=== PATIENT | female | born 1965 | race Caucasian/White ===

== ENCOUNTER 2024-11-25 13:08 | Outpatient (AMB) | payer OTHER, SELFPAY ==
[2024-11-25 13:19] VITALS: BP 160/80; PULSE 89; O2SAT 97; BMI 29.5
--- NOTE | 2024-11-25 13:19 | A.OFFVIS_ITS ---
Vital Signs 11/25/24 13:19 Height 5 ft 4.5 in Weight 174 lb 9.698 oz BMI 29.5 BP 160/80 H Blood Pressure Location Lt brachial Position Sitting Pulse 89 Pulse Source Pulse Oximeter Pulse Oximetry (%) 97 Oxygen Delivery Method Room Air Intake Visit Reasons: arthralgia Intake Note: Patient presents today for osteoarthritis. Accompanied by: Self / Same As Patient Allergies ciprofloxacin [From Cipro] Allergy (Intermediate, Verified 11/25/24 13:20) Rash amoxicillin Allergy (Mild, Verified 11/25/24 13:20) Rash bacitracin Allergy (Mild, Verified 11/25/24 13:20) Rash budesonide Allergy (Mild, Verified 11/25/24 13:20) Rash neomycin Allergy (Mild, Verified 11/25/24 13:20) Rash erythromycin base [From Erythrocin] Allergy (Verified 11/25/24 13:20) vomitting clavulanate Allergy (Mild, Uncoded 11/21/24 14:39) Rash dexmethasone Allergy (Mild, Uncoded 11/21/24 14:39) Anxiety HPI HPI arthralgia: Details: She tried 3 different OTs without luck in getting custom CMC splints. Hard to open jars including medicine bottles. She has weakness in her hands. She has been worked up for chronic lower back pain and has been experiencing weakness in her legs. She has been referred to physical therapy. [facility] Medical History Vertigo Tinea corporis Nodular corneal degeneration, right eye Hyperglycemia Vitamin B 12 deficiency Dorita's disease Hypothyroidism Polycystic disease, ovaries Raynauds syndrome Osteoporosis Localized primary osteoarthritis of carpometacarpal (CMC) joint Primary biliary cirrhosis Trochanteric bursitis, right hip Infrapatellar bursitis Backache Arthralgia of knee Arthralgia of left ankle or foot Positive HOWARD (antinuclear antibody) Family History Father Heart disease Stroke Review of Systems Const All systems reviewed & are unremarkable except as noted in HPI and below Physical Exam Vital Signs: Last Vital Signs Pulse 89 11/25/24 13:19 BP 160/80 H 11/25/24 13:19 Pulse Ox 97 11/25/24 13:19 Oxygen Delivery Method Room Air 11/25/24 13:19 BMI result Body Mass Index 29.5 Const Other: General: Comfortable Skin: No lesions seen MSK: Tender to palpate bilateral CMCs with mild squaring left worse than right. 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 Assessment & Plan Assessment & Plan (1) Osteoarthritis of carpometacarpal (CMC) joint of both thumbs: Comment: Mild, right clinical diagnosis, left confirmed radiographically 02/2024. We discussed conservative management. Code(s): M18.0 - Bilateral primary osteoarthritis of first carpometacarpal joints Category: Medical Plan: She agreed to OT at [facility] with custom splints Return to clinic in 3 months Coding Level of Care Code Est Pt Level 3 (48133) Complex EM visit Add On G2211 Diagnoses Osteoarthritis of carpometacarpal (CMC) joint of both thumbs M18.0
--- OUTSIDE RECORDS SUMMARY | 2024-11-25 16:00 | XMS_ITS | Data Portability ---
Author Organization [place] - [facility], [facility] Design Agent Address [address] [place] [address] Care Team Providers Care Inserting Press Operator Name Role Phone RICHA SOLIS Primary Care Provider [phone] Assessment Encounter Date Assessment Date Assessment LastModified by Organization Details LastModified Time 03/16/2022 03/16/2022 56 hx of PCOS and facial hair was on estrostep , discontinued few months ago was seen by OBGYN 12 months ago and by [facility] at [facility] multiple allergies to meds and dye last period in Jul 2021 with some menopausal sx last FSH 45 patient reassured as PCOS symptoms will improve spontaneously in post menopause discussed possible non hormonal treatment for her menopausal sx including SSRI , Gabapentin and supplements and life style modifications discussed spironolactone as androgen antagonist to help with hirsutism if ok by PCP will repeat FSH as patient is not convinced she is menopausal yet she will call after blood work and after talking to her pcp to discuss results and treatment if desires over 45 min spent today reviewing record , interviewing, examining, discussing findings , recommendations and plan of care [email or web address] Not available 03/16/2022 13:05:10 Plan of Treatment Reminders Order Date Submit Date Provider Last Modified By Organization Details Last Modified Time Details Appointments None recorded . Lab pap, IG + HPV mRNA E6/E7 + reflex HPV (16+18+4 5) 024 024 [facility], [address] [place] [address], [id number], 4 16:16:09 FSH (follicl e-stimul ating hormone) , serum 022 022 [facility], [address] [place] [address], [id number], 3 10:11:10 Referral None recorded . Procedures None recorded . Surgeries None recorded . Imaging None recorded . Medication Orders None recorded . Patient TargetsNo targets recorded. Patient Instructions Encounter Date Encounter Id Patient Instructions Last Modified By Organization Details Last Modified Time 05/07/2024 [id number] A healthy lifestyle: care instructions Not available 05/07/2024 13:48:53 eating healthy foods: care instructions Not available 05/07/2024 13:48:53 bone building exercises Not available 05/07/2024 13:48:53 Reminders about healthy habits and basic lifestyle recommendations: 1) Calcium/Vitamin D: dietary calcium is preferred over supplements--juan daniel e take some time to look into the amount of calcium you normally get through food intake on a typical day--if this is above 7972-5696 mg daily then there is no need for a calcium supplement; if you want to consider taking a vitamin D supplement, the best approach would be to take 600-800 units of vitamin D3 daily, although this may not even be needed for people with a healthy diet, sun exposure, and no health conditions that specifically relate to vitamin D deficiency. Here is a link to a way to calculate your vitamin D needs: https://www.dietar yguidelines.gov/re sources/- dietary-guidelines -online-materials/ vljl-ctbioop-ztkrr t-nutrients/food-s ources 2) Physical activity and exercise: physical activity and exercise are two very important factors in good health. Any physical activity is valuable--walking, taking the stairs, housework or gardening...try to remain as physically active as possible throughout the day. In addition, there are MAJOR health benefits to incorporating exercise into your daily life--ideally 20-30 minutes each day of dedicated exercise time. Good examples of exercise include walking, swimming, jogging/running, biking, exercise machines (ellipticals, treadmills, rowing machines, stairclimbers), yoga, pilates, aerobics...any exercise at all is good for your health. It is also very important for women to incorporate resistance training/weightlif ting into their daily routines as much as possible to help maintain muscle mass, strength, balance, metabolism, and to combat the effects of loss of muscle and bone density that can naturally occur with aging. Consider meeting with a applications trainer or discussing with friends who incorporate resistance training to discover ways to begin to incorporate weightlifting/resi stance training into your daily routine. 3) Healthy diet--YOU ARE WHAT YOU EAT: healthy foods are perhaps the biggest contributor to good health, well-being, and feeling good in your body. Eat mostly plants, minimally processed foods, and healthy, lean proteins as well as healthy fats (olive oil, avocados). Try to reduce the amount of added sugar and added salt in your diet. Avoid fast foods and processed/packaged foods when possible. Drink plenty of water; avoid sugary drinks, diet sodas, and excessive alcohol (no more than one serving of alcohol daily). These are all important steps to take for health and longevity. [email or web address] Not available 05/06/2024 08:00:55 Reason for Referral None Reported. Results Created Date Observation Date Name Description Value Unit Range Abnormal Flag Note LastModifiedBy Organization Detail LastModifiedTime 05/07/20 24 05/10/2024 THINP REP TIS PAP AND HPV MRNA E6/E7 WITH REFLE X TO HPV 16,18 /45 clinical information: normal None given Not Available [facility] [address], [address], 05/10/2024 16:16:09 05/07/20 24 05/10/2024 THINP REP TIS PAP AND HPV MRNA E6/E7 WITH REFLE X TO HPV 16,18 /45 LMP: normal NONE GIVEN Not Available [facility] [address], [address], 05/10/2024 16:16:09 05/07/20 24 05/10/2024 THINP REP TIS PAP AND HPV MRNA E6/E7 WITH REFLE X TO HPV 16,18 /45 prev. Pap: normal NONE GIVEN Not Available [facility] [address], [address], 05/10/2024 16:16:09 09/18/20 24 05/10/2024 THINP REP TIS PAP AND HPV MRNA E6/E7 WITH REFLE X TO HPV 16,18 /45 prev. BX: normal NONE GIVEN Not Available [facility] [place] [facility] [address], [address], 05/10/2024 16:16:09 05/07/20 24 05/10/2024 THINP REP TIS PAP AND HPV MRNA E6/E7 WITH REFLE X TO HPV 16,18 /45 source: normal Cervi x Not Available [facility] [place] [facility] [address], [place], [address], 05/10/2024 16:16:09 05/07/20 24 05/10/2024 THINP REP TIS PAP AND HPV MRNA E6/E7 WITH REFLE X TO HPV 16,18 /45 statement of adequacy: normal Satis facto ry for evalu ation . Endoc ervic al/tr ansfo rmati on zone compo nent prese nt. Not Available [facility] [place] [facility] [address], [place], [address], 05/10/2024 16:16:09 05/07/20 24 05/10/2024 THINP REP TIS PAP AND HPV MRNA E6/E7 WITH REFLE X TO HPV 16,18 /45 interpretati on/result: normal Cytol ogy Resul ts: Negat naif for intra epith elial lesio n or malig remington . Not Available [facility] [place] [facility] [address], [place], [address], 05/10/2024 16:16:09 05/07/20 24 05/10/2024 THINP REP TIS PAP AND HPV MRNA E6/E7 WITH REFLE X TO HPV 16,18 /45 comment: normal This Pap test has been evalu ated with compu ter michael xander techn ology . Not Available [facility] [place] [facility] [address], [place], [address], 05/10/2024 16:16:09 05/07/20 24 05/10/2024 THINP REP TIS PAP AND HPV MRNA E6/E7 WITH REFLE X TO HPV 16,18 /45 cytotechnolo gist: normal CMG, CT( CP) CT scree kevin locat ion: [facility] [address], [place] [address] Not Available [facility] [address], [address], 05/10/2024 16:16:09 05/07/20 24 05/10/2024 THINP REP TIS PAP AND HPV MRNA E6/E7 WITH REFLE X TO HPV 16,18 /45 comment EXPLA NATOR Y NOTE: The Pap is a scree kevin test for cervi nereyda cance r. It is not a diagn ostic test and is subje ct to false negat naif and false posit naif resul ts. It is most relia ble when a satis facto ry sampl e, regul cristian obtai elva, is submi tted with relev ant clini nereyda findi ngs and histo ry, and when the Pap resul t is evalu ated along with histo fer and curre nt clini nereyda infor matio n. Not Available [facility] [address], [place], [address], 05/10/2024 16:16:09 05/07/20 24 05/10/2024 THINP REP TIS PAP AND HPV MRNA E6/E7 WITH REFLE X TO HPV 16,18 /45 HPV MRNA E6/E7 NOT DETECT ED not detect ed normal Metho dolog y: Trans cript ion-M ediat ed Ampli ficat ion This assay detec ts E6/E7 viral messe nger RNA (mRNA ) from 14 high- risk HPV types (16,1 8,31, 33,35 ,39,4 5,51, 52,56 ,58,5 9,66, 68). Cervi nereyda sourc es are requi red for HPV testi ng. If a vagin al sourc e from a patie nt who has had a total hyste recto my with remov al of cervi x was submi tted, pleas e conta ct the testi ng labor atory for alter nativ e testi ng optio ns. For addit ional infor juan daniel ortega e refer to http: //[facility] [employer] cooper.que stdia gnost ics.c om/fa q/FAQ 129v1 (This link if provi ded for infor maximo cooper/ educa sherry l purpo ses only. ) Not Available [facility] [place] [facility] [address], [place], [address], 05/10/2024 16:16:09 05/06/20 24 11/21/2023 MAMMO , scree kevin, bilat eral No observ ation record ed. [email or web address] Not Available 2023 08:39:47 05/06/20 24 03/01/2022 colon oscop y scree kevin (PROC ) No observ ation record ed. [email or web address] Not Available 2023 08:41:03 05/06/20 24 02/13/2023 bone densi ty No observ ation record ed. [email or web address] Not Available 2023 08:42:45 Result Notes None recorded. Problems Name Problem SNOMED Code Status Onset Date Resolution Date Notes Provider Name and Address Organization Details Recorded Time Polycystic ovary syndrome 371258179 Active 2021 Cordelia Chavira PASTRY DECORATOR null, [place] - [facility] 2 09:46:46 Primary biliary cholangitis 17444464 Active 2021 Cordelia Chavira PASTRY DECORATOR null, [facility] 2 09:47:18 Hyperlipide duane 90993700 Active 2021 Cordelia Chavira PASTRY DECORATOR null, [facility] 2 09:47:51 Hypothyroid ism 98773518 Active 2021 Cordelia Chavira PASTRY DECORATOR null, [facility] 2 09:52:19 Corneal degeneratio n 637410019 Active 2021 Right Eye Vipul Mcdaniel MD [address] [place], [address], [facility] 4 13:37:17 Female stress incontinenc e 82973410 Active 2021 Urine Vipul Mcdaniel MD [address] [place] [address], [phone], [facility] 4 13:37:17 Hyperglycem ia 85540942 Active 2021 Tisha Ly [facility] 2 07:21:43 Overweight 852621047 Active 2021 [facility] Ly [facility] 07:21:52 Notes:Rectocele Problem Notes None recorded. Procedures Surgical History Date Name Laterality Status Provider Name and Address Organization Details Recorded Time 11/21/19 24 Date of Last Mammogram completed Hortencia Martinez [facility] 05/06/2024 08:37:13 02/14/20 23 Most Recent Bone Density completed Hortencia Martinez [facility] 05/06/2024 08:37:50 03/01/20 22 Date of Last Colonoscopy completed Hortencia Martinez [facility] 05/06/2024 08:37:30 03/01/20 22 EGD completed Tisha Ly [facility] 03/16/2022 11:31:58 03/01/20 22 Sigmoidoscopy completed Tisha Ly [facility] 03/16/2022 11:32:34 01/23/20 20 Date of Last Pap Smear completed Cordelia Chavira [facility] 03/08/2022 09:48:22 procedure on ganglion cyst completed Tisha Ly [facility] 03/16/2022 11:33:26 extraction of wisdom tooth completed Tisha Ly [facility] 03/16/2022 11:33:42 biopsy of liver completed Tisha horner [facility] 03/16/2022 11:34:17 Imaging Results Imaging Date Name Status LastModified by Organiz ation Details LastModified Time 11/21/2023 MAMMO, screening, bilateral completed Information not available 05/06/2024 08:39:47 03/01/2022 colonoscopy screening (PROC) completed Information not available 05/06/2024 08:41:03 02/13/2023 bone density completed Information not available 05/06/2024 08:42:45 Procedure Notes None recorded. Medical Equipment None Reported. Allergies Allergen ID Allergen Name Allergen Category Reaction Reaction Severity Criticality Documentation Date Start Date Code Code System Note Provider Name and Address Organization Details Recorded Time 575346 amoxicill in medicatio n other severe Not available 03/16/2022 723 RxNorm GI Upset Tisha Malachi PASTRY DECORATOR null, [facility] 2 07:25:34 166085 bacitraci n medicatio n Not available Not available Not available 03/16/2022 1291 RxNorm Tisha Malachi PASTRY DECORATOR null, [facility] 2 07:26:01 006783 budesonid e medicatio n other severe Not available 03/16/2022 20568 RxNorm Tisha Malachi PASTRY DECORATOR null, [facility] 2 07:26:45 356940 ciproflox acin medicatio n other severe Not available 03/16/2022 2551 RxNorm visua l distu rbanc e Tisha Malachi PASTRY DECORATOR null, [facility] 2 07:27:53 892904 clavulani c acid Not available other severe Not available 03/16/2022 26769 RxNorm Tisha Malachi PASTRY DECORATOR null, [facility] 2 07:28:15 407959 dexametha sone medicatio n Not available Not available Not available 03/16/2022 3264 RxNorm Tisha Malachi PASTRY DECORATOR null, [facility] 2 07:28:35 833347 erythromy rose marie medicatio n other severe Not available 03/16/2022 4053 RxNorm Tisha Malachi PASTRY DECORATOR null, [facility] 2 07:28:58 713310 fluocinol one acetonide medicatio n other severe Not available 03/16/2022 4461 RxNorm Tisha Malachi PASTRY DECORATOR null, [facility] 2 07:29:53 329247 fluocinon maxx medicatio n other severe Not available 03/16/2022 4462 RxNorm Tisha Malachi PASTRY DECORATOR null, [facility] 2 07:30:35 190852 miconazol e medicatio n other severe Not available 03/16/2022 6932 RxNorm Tisha Malachi PASTRY DECORATOR null, [facility] 2 07:31:23 675254 neomycin medicatio n Not available Not available Not available 03/16/2022 7299 RxNorm Blist ering Tisha Malachi PASTRY DECORATOR null, [facility] 2 07:31:55 956480 Product containin g penicilli n (product) medicatio n Not available Not available Not available 03/16/2022 18860 8001 SNOMED Tisha Malachi PASTRY DECORATOR null, [facility] 2 07:32:15 479889 polymyxin B medicatio n Not available Not available Not available 03/16/2022 8536 RxNorm Blist ering Tisha Malachi PASTRY DECORATOR null, [facility] 2 07:32:53 467565 prednison e medicatio n hives Not available Not available 03/16/2022 8640 RxNorm Tisha Malachi PASTRY DECORATOR null, [facility] 2 07:33:13 613567 clindamyc in Not available Not available Not available Not available 03/16/2022 2582 RxNorm Abdom inal Pain Tisha Malachi PASTRY DECORATOR null, [facility] 2 07:33:48 Medications Name Sig Start Date Stop Date Status Note LastModified by Organization Details LastModified Time diphenhydra mine 12.5 mg/5 mL oral liquid active Not Available Not Available Not Available Synthroid 150 mcg tablet active Not Available Not Available Not Available FML Liquifilm 0.1 % eye drops,suspe nsion active Not Available Not Available Not Available Estrostep 1-20 (5)/1-30(7) /1mg-35mcg( 9) tablet 03/16 completed Not Available Not Available Not Available famotidine 20 mg tablet active Not Available Not Available Not Available gentamicin 0.3 % eye drops active Not Available Not Available Not Available clotrimazol e-betametha sone 1 %-0.05 % topical cream active Not Available Not Available Not Available ursodiol 300 mg capsule Take 1 capsule 3 times a day by oral route. active Not Available Not Available No t Available nystatin 100,000 unit/gram topical powder active Not Available Not Available Not Available ibuprofen 100 mg/5 mL oral suspension active Not Available Not Available N ot Available mometasone 0.1 % topical cream APPLY TOPICALLY TO THE AFFECTED AREA TWICE DAILY active Not Available Not Available No t Available Synthroid 137 mcg tablet active Not Available Not Available Not Available estradiol micronized (bulk) 100 % powder 03/16 completed Not Available Not Available Not Available Systane Ultra 0.4 %-0.3 % eye drops active Not Available Not Available Not Available GenTeal Tears Moderate (PF) 0.1 %-0.3 % drops in a dropperette active Not Available Not Available Not Available Vitals Date Recorded Body height Heart rate Body mass index (BMI) Body weight Systolic blood pressure Diastolic blood pressure Provider Name and Address Organization Details Last Updated DateTime 2 162.56 cm 80 /min 28.5 kg/m2 88513.3 3 g 132 mm[Hg] 84 mm[Hg] Tisha Ly CMA [facility] [employer] 2 11:42:47 Date Recorded Body height Body mass index (BMI) Body weight Systolic blood pressure Diastolic blood pressure Provider Name and Address Organization Details Last Updated DateTime 05/07/2024 162.56 cm 28.5 kg/m2 79487.61 g 130 mm[Hg] 82 mm[Hg] Hortencia Martinez CMA [facility] 4 13:29:17 Social History Question Answer Notes LastModified by Organizat ion Details LastModified Time Tobacco Smoking Status [facility] 03/16/2022 07:22:27 What Is Your Level Of Alcohol Consumption? None Information not available 03/16/2022 Are You Currently Employed? No Information not available 03/16/2022 Have You Ever Experienced Any Trauma Such As A Sexual Assault, Domestic Violence, Combat Experience, A Sudden Of A Loved One, Or Anything That Made You Excessively Afraid? No Information not available 03/16/2022 Sexual Abuse No Information not available 03/16/2022 What Was The Date Of Your Most Recent Tobacco Screening? 05/07/2024 Information not available 05/07/2024 How Many Children Do You Have? 1 Information not available 03/16/2022 What Is Your Relationship Status? Single Information not available 03/16/2022 Are You Sexually Active? No Information not available 03/16/2022 Sex: Female Functional Status None recorded. Mental Status None recorded. Family History Relationship Description Onset Age of this Age Resolved Age Notes LastModified by Organization Details LastModified Time Paternal Grandmother Malignant tumor of colon etatro Not available 2021 11:43:18 Notes:No family hx of breast ,ovarian,endometrial, cervical, colon cancer reviewed 05/07/24 CRS Medical History No medical history recorded. Gynecological History Statement/Question Response Hx abnormal paps No Date of Last Colonoscopy 03/01/2022 incontinence urine/ bowels Y Date of Last Mammogram 11/21/2023 Most Recent Bone Density 02/13/2023 genital prolapse N Date of LMP hx of breast problem No Sexually Active? N Hx any STI No Date of Last Pap Smear 01/23/2020 Age at Menarche 14 hx of urinary problem No Obstetrics History GPAL:G 1 P 1 0 0 1 Type Value Full Term 1 Living 1 Total 1 Past Encounters Encounter ID Performer Location Encounter Start Date Encounter Closed Date Diagnosis/Indication Diagnosis SNOMED-CT Code Diagnosis ICD10 Code Diagnosis Note [id number] Jamel Alicia MD [employer] [address] [place] [address] 03/16/2022 11:22:53 03/16/2022 12:12:04 Menopausal symptom 23731999 N95.1 Polycystic ovary syndrome 140890964 E28.2 Female hirsutism 0105021 9 L68.0 [id number] Vipul Mcdaniel MD [facility] [employer] [address] [place] [address] 05/07/2024 13:10:50 05/07/2024 13:52:15 Gynecologic examination 27062417 Z01.419 up to date on routine health maintenanc e or else any needed screenings ordered today; encourage/ continue healthy living habits Discussed dietary calcium intake, vitamin D3 supplement ation, magnesium, physical activity and importance of resistance training to maintain muscle mass Screening for malignant neoplasm of cervix 153641516 Z12.4 Z01.419 Overactive urinary bladder 765766321 N32.81 Female str ess incontinence 69344720 N39.3 offered referral to PFPT--Adalid cooper will check with PT office she attends in [place] and let us know if she wants referral to be placed Health Concerns Section Related Observation LastModified by Organization Detai ls LastModified Time None Recorded Concern Status LastModified by Organization Details LastModified Time None Recorded Advance Directives Directive None Recorded Payers Encounter Date Sequence Insurance Name Policy Number Policy Sun Covered Member ID Sun Member ID Guarantor Name 03/16/2022 1 [employer] (MEDICAID HMO) Alpesh Oviedo [id number] Alpesh Oviedo 05/07/2024 1 [employer] (MEDICAID HMO) Alpesh Oviedo [id number] Alpesh Oviedo Notes Date Note Type Note Provider Name and Address Organization Details Recorded Time 03/16/2022 text/html Alpesh presents today as a New PT referred by her PCP Dr. Solis for menopausal symptoms and PCOSPap - 01/23/20 Neg/Neg HPVMammo - 09/23/21 Neg Jamel Alicia MD [address] [facility], [place], [address], [facility] - [facility] 03/16/2022 13:05:18 05/07/2024 text/html Alpesh presents f or annual WWE.59yo, , postmenopausal.HRT: noneDoes have urinary urgency/frequency as a chronic symptom; does have ALYCIA.Taking ursodiol for PBC--sees specialist.No longer taking any hormonal medication. Pap: 01/23/20 NILM/HPV-Mammo: 11/21/23Colonoscopy/ Sigmoidoscopy : 03/01/22 due for Cologard PCP orderedBone Density: 02/13/23 Vipul Mcdaniel MD [address] [place] [address], [phone], [facility] - [facility] 05/07/2024 13:48:57 OBGyn Episode No OBEpisode recorded.
== END 2024-11-25 14:19 | disposition home or self-care (01) ==
PROVIDERS: PCP Internal Medicine; Visit Provider Internal Medicine Rheumatology
DX: M18.0 Bilateral primary osteoarthritis of first carpometacarpal joints (principal)
CPT/HCPCS: 99213; G2211

== ENCOUNTER 2025-04-29 10:25 | Outpatient (AMB) | payer OTHER, SELFPAY ==
[2025-04-29 10:31] VITALS: BP 130/70; PULSE 85; O2SAT 97; BMI 29.1
--- NOTE | 2025-04-29 10:31 | MHC.OFFVIS ---
Vital Signs 04/29/25 10:31 Height 5 ft 4.5 in Weight 172 lb 6.424 oz BMI 29.1 BP 130/70 Blood Pressure Location Lt brachial Position Sitting Pulse 85 Pulse Source Pulse Oximeter Pulse Oximetry (%) 97 Oxygen Delivery Method Room Air Intake Visit Reasons: follow up Intake Note: Patient presents today for osteoarthritis. Accompanied by: Self / Same As Patient Allergies ciprofloxacin (From Cipro) Allergy (Intermediate, Verified 11/25/24 13:20) Rash amoxicillin Allergy (Mild, Verified 11/25/24 13:20) Rash bacitracin Allergy (Mild, Verified 11/25/24 13:20) Rash budesonide Allergy (Mild, Verified 11/25/24 13:20) Rash neomycin Allergy (Mild, Verified 11/25/24 13:20) Rash erythromycin base (From Erythrocin) Allergy (Verified 11/25/24 13:20) vomitting clavulanate Allergy (Mild, Uncoded 11/21/24 14:39) Rash dexmethasone Allergy (Mild, Uncoded 11/21/24 14:39) Anxiety HPI HPI follow up: Details: She had CMC splints customized in [place], [place], which were ineffective. They are loose. She does not wear them. 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 Having a hard time with buttons. She recently did not have increased pain when she was cutting a large quantity of carrots for animal feedings. She was able to cut enough carrots for 1600 cups of feedings. She has some swelling at times. Physical therapy discharged her. They were working on her back pain. She follows up with [facility] for primary biliary cirrhosis. She is on treatment. She continues to have elevated liver enzymes. She had an ultrasound of her liver 03/10/2025, which revealed that she had hepatic steatosis. Labs from March 2025 reviewed with patient, which reveal positive Lyme IgM antibody. She had a lesion on her ankle with erythema and blistering that was treated with 7 day course of amoxicillin t.i.d.. She had resolution of lesion. She was referred to wound care today but we will not be going to appointment because the lesion is now resolved. [facility] Medical History Vertigo Tinea corporis Nodular corneal degeneration, right eye Hyperglycemia Vitamin B 12 deficiency Dorita's disease Hypothyroidism Polycystic disease, ovaries Raynauds syndrome Osteoporosis Localized primary osteoarthritis of carpometacarpal (CMC) joint Primary biliary cirrhosis Trochanteric bursitis, right hip Infrapatellar bursitis Backache Arthralgia of knee Arthralgia of left ankle or foot Positive HOWARD (antinuclear antibody) Family History Father Heart disease Stroke Physical Exam Vital Signs: Last Vital Signs Pulse 85 04/29/25 10:31 BP 130/70 04/29/25 10:31 Pulse Ox 97 04/29/25 10:31 Oxygen Delivery Method Room Air 04/29/25 10:31 BMI result Body Mass Index 29.1 Const Other: General: Comfortable Skin: No lesions seen MSK: Tender to palpate bilateral CMCs with mild squaring left worse than right. She has mild joint effusion of left CMC. 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 Results Reviewed Results Reviewed: Labs from 04/07/2025 reviewed. Ultrasound abdomen with liver elastography from 03/10/2025 reviewed. Assessment & Plan Assessment & Plan (1) Osteoarthritis of carpometacarpal (CMC) joint of both thumbs: Comment: Mild, right clinical diagnosis, left confirmed radiographically 02/2024. CMC splints that were recently customized are ineffective for patient because they are too loose. Code(s): M18.0 - Bilateral primary osteoarthritis of first carpometacarpal joints Category: Medical Plan: She agreed to OT at [facility] to improve fine motor movement and for custom splints Return to clinic in 3 months Coding Level of Care Code Est Pt Level 4 (57530) Complex EM visit Add On G2211 Diagnoses Osteoarthritis of carpometacarpal (CMC) joint of both thumbs M18.0 Time Spent (min) 20
--- OUTSIDE RECORDS SUMMARY | 2025-04-29 12:39 | XMS_ITS | Clinical Summary ---
Author Organization [facility] Address [address] [place] [id number] Phone Care Team Providers Care Supervisor Securities Vault Name Role Phone Niko Solis MD Primary Care Provider [phone] Allergies Active Allergy Reactions Criticality Noted Date Comments Augmentin (Amoxicillin-Pot Clavulanate) GI Upset 03/22/2016 Budesonide GI Upset 03/22/2016 Ciprofloxacin Vomiting 03/22/2016 Dexamethasone GI Upset 03/22/2016 Erythromycin GI Upset 03/22/2016 Fluocinolone GI Upset 03/22/2016 Neosporin (Kyb-Kts-Kdhnp) (Hydrocortisone) Vomiting 03/22/2016 Polytrim (Polymyxin B Sulf-Trimethoprim) GI Upset 03/22/2016 Quaternium 15 Unknown 10/30/2019 Medications LEVOTHYROXINE SODIUM (SYNTHROID ORAL) Take by mouth. Activ e moxifloxacin (VIGAMOX) 0.5 % ophthalmic solution Place 1 drop into the right eye 3 (three) times a day. No substitutions 3 mL 1 6 Active Additional Information Patient not taking.Reported on 04/17/2022 gatifloxacin (ZYMAXID) 0.5 % Drop Place 1 drop into the right eye 2 (two) times a day. 2.5 mL 1 6 Active Additional Information Patient not taking.Reported on 04/17/2022 tobramycin (TOBREX) 0.3 % ophthalmic solution Place 1 drop into the right eye 2 (two) times a day. 5 mL 3 6 Active Additional Information Patient not taking.Reported on 04/17/2022 norethindrone- ethinyl estradiol-iron (ESTROSTEP FE) 1-20(5)/1-30(7 ) /1mg-35mcg (9) Tab Take 1 tablet by mouth. Active ursodioL (ACTIGALL) 300 mg capsule Take 300 mg by mouth. 0 Active Active Problems No known active problems Social History Tobacco Use Types Packs/Day Years Used Date Smoking Tobacco: Never Smokeless Tobacco: Never Education Answer Date Recorded Are you interested in more education? Not on priscilla e 12/15/2022 Are you concerned about learning? Not on file 12/15/2022 No 12/15/2022 No 12/15/2022 Digital Access Answer Date Recorded No 01/15/2023 No 01/15/2023 No 01/15/2023 Reliable internet access at home? Not on file 01/15/2023 Device with a working camera? Not on file Comments Unknown Sex and Gender Information Value Date Recorded Sex Assigned at Female 08/01/2019 9:23 AM EST Legal Sex Female 12:30 PM EDT Gender Identity Female 08/01/2019 9:23 AM EST Sexual Orientation Straight 08/01/2019 9: 23 AM EST Plan of Treatment Health Maintenance Due Date Last Done Comments LIPID PANEL 1965 TSH LEVEL 1965 DEPRESSION SCREENING 1977 HEPATITIS C SCREENING 1983 HIV ONE-TIME SCREENING (18-6 5 YEARS) 1983 PAP SMEAR 1986 MAMMOGRAM 2005 COLOGUARD 2010 COLONOSCOPY 2010 COLORECTAL CANCER SCREENING 2010 FIT TEST 2010 FOBT 2010 SIGMOIDOSCOPY 2010 VIRTUAL COLONOSCOPY 2010 PNEUMOCOCCAL VACCINES (50+ y ears) (1 of 1 - PCV) 2015 ZOSTER VACCINES (1 of 2) 2015 INFLUENZA VACCINE (#1) 2025 COVID-19 VACCINE ( - 2023-2 5 season) 2025 Adult Td,Tdap Booster 02/07/2032 02/06/2022 SMOKING STATUS SCREENING (On ce After 26 Yrs) Completed 04/17/2022 HEPATITIS A VACCINES Aged Out No long er eligible based on patient's age to complete this topic HIB VACCINES Aged Out No longer eligi ble based on patient's age to complete this topic MENINGOCOCCAL VACCINES (ACWY) Aged Out No longer eligible based on patient's age to complete this topic MENINGOCOCCAL VACCINES (B) Aged Out N o longer eligible based on patient's age to complete this topic Medical Devices Not on file [place] [address] ACO ACO ACO ACO ACO Care Teams Supervisor Securities Vault Relationship Specialty Start Date End Date Niko Solis MD [address] [facility], [facility] [address] [place] [address] PCP - General Internal Medicine 04/12/22 Additional Source Comments The information contained in this document represents components of the legal health record. It is not the complete legal health record.[facility]
== END 2025-04-29 11:40 | disposition home or self-care (01) ==
PROVIDERS: PCP Internal Medicine; Visit Provider Internal Medicine Rheumatology
DX: M18.0 Bilateral primary osteoarthritis of first carpometacarpal joints (principal)
CPT/HCPCS: 99214; G2211

== ENCOUNTER 2025-05-27 10:53 | Outpatient (RCR) | payer OTHER, SELFPAY ==
--- NOTE | 2025-05-27 12:47 | MHC.OT.EP ---
[facility] Office [address] [facility] [phone] F: [phone] F: [phone] Occupational Therapy Plan of Care Patient Name: Alpesh Oviedo Date of Evaluation: 05/27/25 Diagnosis: Bilateral OA of CMC joints Pain Location: L> R CMC joint pain radiates to forearm Current: 4/10 Worst: 8/10 Aggravating Factors: Forceful grasp, pincer grasp Difficulty lifting Alleviating Factors: None reported Previously utilized CMC splints with good effect Assessment: Alpesh is a 60 y/o female referred to OT w/ bilateral OA of CMC joints. Pt reports she is unable to come back for therapy as she lives in [place] and the drive is too much. She is open to custom CMC splinting and education of exercises for HEP. She had CMC splints customized in [place], [place], which were ineffective. They are loose and she reports she does not wear them. 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 Pt was educated in splinting wearing schedule and skin checks. Pt practiced with bilateral thumb AROM exercises and t-foam exercises for gentle strengthening, and was issued handouts for HEP. She was also educated in joint protection techniques and pain management options. At this time, due to long commute, pt was instructed to call with any questions/concerns, and is otherwise being seen for eval only with custom splinting. Frequency and Duration: The patient will be seen for OT eval only Short Term Goals: Pt will be educated in joint protection techniques Fabricate bilateral thumb spica splints for OA management IND with HEP Lead Installer Goals: STG's=LTG's Treatment Plan: Therapeutic Exercise Home Exercise Program Splinting Electronically Signed By: Simin Angelo, OTR/L Please Sign and return to therapist. Thank you once again for your referral.
== END 2025-07-08 12:53 | disposition home or self-care (01) ==
LOC: HO.OTS 10:53
PROVIDERS: Visit Provider Internal Medicine Rheumatology
DX: M81.0 Age-related osteoporosis without current pathological fracture (principal)
CPT/HCPCS: 29130; 97110; 97165